=== PATIENT | male | born 1960 | race Caucasian/White ===

== ENCOUNTER 2021-08-24 20:09 | Inpatient (IN) | payer MEDICARE ==
[~2021-08-24] VITALS: Ht 167.6 cm; Wt 74.8 kg
[~2021-08-24 20:09] MED LIST: DOXY100C2 PO
[2021-08-24] MEDS ORDERED: BLOOD SUGAR DIAGNOSTIC 1 EACH STRIP IN ONE (21:30)
[2021-08-24] MEDS ORDERED: MAG HYDROX/AL HYDROX/SIMETH 30 ML UDC PO PRN (21:30)
[2021-08-24] MEDS ORDERED: ACETAMINOPHEN 325 MG TABLET PO PRN (21:30)
[2021-08-24] MEDS ORDERED: TEMAZEPAM 7.5 MG CAPSULE PO PRN (21:30)
[2021-08-24] MEDS ORDERED: MAGNESIUM HYDROXIDE 30 ML UDC PO PRN (21:30)
[2021-08-24] MEDS: NICOTINE PATCH (21MG) 21 MG PATCH.TD24 TD SCH (23:22)
[2021-08-24] MEDS ORDERED: BUSP10TA35 PO (23:39)
[2021-08-24] MEDS ORDERED: HALO10TA13 PO (23:43)
[2021-08-24] MEDS ORDERED: HALO100A4 IM (23:44)
[2021-08-24] MEDS ORDERED: HYDR12.55 PO (23:45)
[2021-08-24] MEDS ORDERED: HYDR50CA PO (23:47)
[2021-08-24] MEDS ORDERED: OLAN10TA3 PO (23:48)
[2021-08-24] MEDS ORDERED: SOFO1TAB PO (23:49)
[2021-08-24] MEDS ORDERED: TAMS-12 PO (23:49)
[2021-08-24] MEDS ORDERED: TRAZ-257 PO (23:50)
[2021-08-24] MEDS ORDERED: LORA-259 PO (23:51)
--- NOTE | 2021-08-25 01:30 | NUR ---
GPS RN ADMITTING NOTES: PATIENT ARRIVED THIS UNIT ON A STRETCHER WITH 2 EMT STAFF. PER REPORT, PATIENT ATTEMPTED TO LAY IN THE MIDDLE OF THE STREET TWICE TO END HIS LIFE, BUT PATIENT DENIED WANTING TO END HIS LIFE. PER PATIENT "I WAS JUST MESSING AROUND WITH MYSELF", "I WAS JUST TRYING TO LAY DOWN TO WATCH THE CARS GO BY, I DON'T WANT TO ". PER REPORT, PATIENT ALSO REPORTED A/V HALLUCINATIONS AT TIMES BUT NOT RIGHT NOW. UPON FACE TO FACE EVALUATION, PATIENT IS A/O X3, DISORGANIZED, ANXIOUS, POOR INSIGHT, POOR JUDGEMENT, ADMITS TO A/V HALLUCINATIONS SOMETIMES BUT NONE AT THIS TIME, ABLE TO FOLLOW COMMAND. SKIN ASSESSMENT DONE, PICTURES TAKEN AND PLACED IN PATIENT CHART. MRSA SWAB TAKEN, BS 99MG/DL. PATIENT IS UNDER THE PSYCHIATRIC CARE OF DR FRANK AND MEDICAL CARE OF [place]. NO S/S OF DISTRESS. RESPIRATION EVEN AND UNLABORED WITH EQUAL RISE AND FALL OF THE CHEST, ON ROOM AIR. PATIENT OFFERED FLUID AND SNACKS TOLERATED. PATIENT HAS NO NEEDS AT THIS TIME. PATIENT EDUCATED ON THE USE OF THE CALL BARNES. BED IN LOWEST POSITION AND LOCKED, SIDE RAILS UP X 2 FOR SAFETY. BED ALARM ON. WILL CONTINUE TO MONITOR Q15 MINS FOR MOOD, SAFETY AND BEHAVIOR.
[2021-08-25 04:28] VITALS: BP 129/75
[2021-08-25] MEDS: LORAZEPAM 1 MG TABLET PO PRN (06:11)
--- NOTE | 2021-08-25 06:13 | NUR ---
GPS RN NOTES: ATIVAN 1MG GIVEN PO PRN FOR ANXIETY AT 0611.
[2021-08-25 06:24] LABS: BASOPHILS # (AUTO) 0.1 K/uL (0.0-0.2); HEMATOCRIT 42 % (39-51); LYMPHOCYTES # (AUTO) 1.4 K/uL (0.8-4.8); LYMPHOCYTES % (AUTO) 24.6 % (20.0-44.0); MEAN CORPUSCULAR HGB CONC 34 g/dl (31.0-36.0); MEAN CORPUSCULAR VOLUME 97 fL (80-96); MONOCYTES # (AUTO) 1.1 K/uL (0.1-1.30); MONOCYTES % (AUTO) 18.7 % (2.0-12.0); NEUTROPHILS # (AUTO) 2.8 K/uL (1.8-8.9); NEUTROPHILS % (AUTO) 50.7 % (43.0-81.0); PLATELET COUNT (AUTO) 200 K/uL (150-450); RED BLOOD CELL COUNT(AUTO) 4.28 MIL/uL (4.5-6.0); WHITE BLOOD COUNT (AUTO) 5.6 K/uL (4.3-11.0)
[2021-08-25 06:40] LABS: CALCIUM, SERUM 8.2 mg/dL (8.5-10.1); CREATININE 0.8 mg/dL (0.6-1.3); POTASSIUM 3.8 mmol/L (3.5-5.1)
[2021-08-25 08:00] VITALS: BP 139/84
[2021-08-25] MEDS ORDERED: hydrOXYzine PAMOATE 50 MG CAPSULE PO SCH (09:00)
[2021-08-25] MEDS: HYDROCHLOROTHIAZIDE 25 MG TABLET PO SCH (09:03)
[2021-08-25] MEDS: NICOTINE PATCH (21MG) 21 MG PATCH.TD24 TD SCH (09:03)
[2021-08-25] MEDS: DOXYCYCLINE HYCLATE (100 MG) 100 MG TABLET PO SCH ×2 (09:37→16:51)
[2021-08-25 10:29] LABS: EOSINOPHILS % (MANUAL) 3 % (0-4); LYMPHOCYTES % (MANUAL) 23 % (16-48); MONOCYTES % (MANUAL) 14 % (0-11.0); NEUTROPHILS % (MANUAL) 60 (42-76)
[2021-08-25 16:00] VITALS: BP 142/84
[2021-08-25 20:02] VITALS: BP 152/89
[2021-08-25 20:11] VITALS: BP 152/89
[2021-08-25] MEDS: busPIRone 5 MG TABLET PO SCH (21:30)
--- NOTE | 2021-08-25 21:30 | NUR ---
RN NOTE: PATIENT SEEN BY DR. FRANK WITH NEW ORDERS, NOTED AND CARRIED OUT.
[2021-08-25] MEDS: HALOPERIDOL 5 MG TABLET PO SCH (22:01)
[2021-08-25] MEDS: TAMSULOSIN 0.4 MG CAP.SR.24H PO SCH (22:02)
[2021-08-25] MEDS: TRAZODONE 50 MG TABLET PO SCH (22:33)
[2021-08-25] MEDS: OLANZAPINE ZYDIS 5 MG TAB.RAPDIS PO SCH (22:44)
--- NOTE | 2021-08-25 23:50 | NUR ---
RN NOTE: HELD BUSPAR DR. FRANK SAW THE PATIENT TONIGHT AND ORDERED BUSPAR, VERIFIED THE ORDER BY PHARMACY NOW. DR. FRANK WAS ON THE UNIT AND INFORMED HIM THAT OTHER NEW PSYCH MEDS WERE ADMINISTERED TO THE PATIENT, PATIENT IS ASLEEP AT THIS TIME. DR. FARNK ADVISED TO HOLD BUSPAR TONIGHT & NOT TO WAKE UP THE PATIENT. HELD BUSPAR 10 MG PER MD ORDER. FIRST DOSE OF BUSPAR WILL BE GIVEN IN AM TOMORROW. WILL CONTINUE TO MONITOR THE PATIENT FOR ANY CHANGE OF CONDITION.
[2021-08-26 08:00] VITALS: BP 148/80
[2021-08-26] MEDS: HALOPERIDOL 5 MG TABLET PO SCH ×2 (08:37→21:28)
[2021-08-26] MEDS: NICOTINE PATCH (21MG) 21 MG PATCH.TD24 TD SCH (08:37)
[2021-08-26] MEDS: HYDROCHLOROTHIAZIDE 25 MG TABLET PO SCH (08:37)
[2021-08-26] MEDS: busPIRone 5 MG TABLET PO SCH ×2 (08:37→21:25)
[2021-08-26] MEDS: DOXYCYCLINE HYCLATE (100 MG) 100 MG TABLET PO SCH ×2 (08:38→17:55)
[2021-08-26] MEDS: LORAZEPAM 1 MG TABLET PO PRN (14:36)
[2021-08-26 16:04] VITALS: BP 141/77
[2021-08-26 19:53] VITALS: BP 135/86
[2021-08-26] MEDS: TAMSULOSIN 0.4 MG CAP.SR.24H PO SCH (22:05)
[2021-08-26] MEDS: TRAZODONE 50 MG TABLET PO SCH (22:06)
[2021-08-26] MEDS: OLANZAPINE ZYDIS 5 MG TAB.RAPDIS PO SCH (22:06)
--- NOTE | 2021-08-27 07:01 | NUR ---
GPS RN CLOSING NOTES: PATIENT IS CURRENTLY SLEEPING. PATIENT SLEPT 7 HR THIS SHIFT. NO S/S OF DISTRESS. RESPIRATION EVEN AND UNLABORED WITH EQUAL RISE AND FALL OF THE CHEST, ON ROOM AIR. ALL PATIENT CARE NEEDS HAVE BEEN MET ANTICIPATED. WILL CONTINUE TO MONITOR AND ENDORSE TO AM SHIFT.
[2021-08-27 08:00] VITALS: BP 136/72
[2021-08-27] MEDS: HYDROCHLOROTHIAZIDE 25 MG TABLET PO SCH (08:45)
[2021-08-27] MEDS: HALOPERIDOL 5 MG TABLET PO SCH ×2 (08:46→21:31)
[2021-08-27] MEDS: busPIRone 5 MG TABLET PO SCH ×2 (08:46→21:05)
[2021-08-27] MEDS: NICOTINE PATCH (21MG) 21 MG PATCH.TD24 TD SCH (08:46)
[2021-08-27] MEDS: DOXYCYCLINE HYCLATE (100 MG) 100 MG TABLET PO SCH ×2 (08:47→16:52)
--- NOTE | 2021-08-27 09:51 | NUR ---
RENATE Initial Discharge Plan: Pt resides at [facility] [address] [address]; [phone]. RENATE spoke with admission Sydnie ([phone]) who stated that they cannot accept pt back and stated to coordinate with pt's telehealth case manager Estephania ([phone]). RENATE contacted Estephania and left a detailed voicemail. RENATE will work with the MD and treatment team to coordinate appropriate discharge.
--- NOTE | 2021-08-27 10:07 | NUR ---
Conservator: RENATE contacted pt's conservator Yesica ([phone]) and the public guardian office in . However, Yesica is not available today but Javan who is covering will send Detain and Treat.
--- NOTE | 2021-08-27 10:25 | NUR ---
Detain and Treat: RENATE contacted pt's conservator Yesica ([phone]) and the public guardian office in . Javan who is covering for Yesica sent pt's detain and treat. RENATE placed in chart and notified charge nurse.
--- NOTE | 2021-08-27 13:56 | NUR ---
Drug Enforcement Agent: RENATE received a call from manager of case management Estephania ([phone]) who stated that pt's Board and Care evicted pt on 08/24/2021 and stated his facility is not an appropriate fit. Estephania stated she is working on finding him a placement. RENATE and manager of case management will work together to help find pt a place.
--- NOTE | 2021-08-27 13:57 | NUR ---
SNF Referral: RENATE sent clinicals to Taty haynes from [facility] ([phone]) for placement option.
[2021-08-27 16:17] VITALS: BP 151/86
[2021-08-27 19:53] VITALS: BP 143/88
[2021-08-27 20:03] VITALS: BP 143/88
[2021-08-27] MEDS: TAMSULOSIN 0.4 MG CAP.SR.24H PO SCH (21:33)
[2021-08-27] MEDS: OLANZAPINE ZYDIS 5 MG TAB.RAPDIS PO SCH (22:04)
[2021-08-27] MEDS: TRAZODONE 50 MG TABLET PO SCH (22:05)
--- NOTE | 2021-08-27 22:10 | NUR ---
GPS RN NOTES: PATIENT IS CONSERVED AND NEEDS DETAIN AND TREAT THOUGH CURRENTLY COMPLIANT WITH PO MEDS. DR FRANK HAS BEEN NOTIFIED.
[2021-08-28 08:00] VITALS: BP 153/74
[2021-08-28] MEDS: HYDROCHLOROTHIAZIDE 25 MG TABLET PO SCH (08:55)
[2021-08-28] MEDS: busPIRone 5 MG TABLET PO SCH ×2 (08:56→21:09)
[2021-08-28] MEDS: NICOTINE PATCH (21MG) 21 MG PATCH.TD24 TD SCH (08:56)
[2021-08-28] MEDS: HALOPERIDOL 5 MG TABLET PO SCH ×2 (08:56→21:10)
[2021-08-28] MEDS: DOXYCYCLINE HYCLATE (100 MG) 100 MG TABLET PO SCH ×2 (08:56→17:13)
--- NOTE | 2021-08-28 10:37 | NUR ---
SNF Contact: SW spoke with Taty haynes from [facility] ([phone]) who stated they cannot accept pt due to medical issues.
--- NOTE | 2021-08-28 10:38 | NUR ---
SNF Contact: RENATE sent clinicals to Alisha from [facility]. SW sent H & P notes, progress notes, and medication list. Per Michael, they accepted pt.
--- NOTE | 2021-08-28 10:43 | NUR ---
Hogshead Packer: RENATE contacted worker Estephania ([phone]) and stated this caption writer found pt a placement called [facility]. She was agreeable and stated she will also notify pt's conservator.
--- NOTE | 2021-08-28 10:47 | NUR ---
Conservator: SW contacted pt's conservator Yesica ([phone]) and left a detailed voicemail of pt's discharge plan and requested a call back.
[2021-08-28 16:20] VITALS: BP 158/91
[2021-08-28 20:06] VITALS: BP_SYST 127; BP_SYST 165; BP_DIAS 87; BP_DIAS 94
[2021-08-28] MEDS: TRAZODONE 50 MG TABLET PO SCH (21:08)
[2021-08-28] MEDS: OLANZAPINE ZYDIS 5 MG TAB.RAPDIS PO SCH (21:09)
[2021-08-28] MEDS: TAMSULOSIN 0.4 MG CAP.SR.24H PO SCH (21:10)
[2021-08-29 08:00] VITALS: BP 157/87
[2021-08-29] MEDS: OLANZAPINE ZYDIS 5 MG TAB.RAPDIS PO SCH ×2 (08:29→22:00)
[2021-08-29] MEDS: DOXYCYCLINE HYCLATE (100 MG) 100 MG TABLET PO SCH ×2 (08:30→16:26)
[2021-08-29] MEDS: NICOTINE PATCH (21MG) 21 MG PATCH.TD24 TD SCH (08:34)
[2021-08-29] MEDS: HALOPERIDOL 5 MG TABLET PO SCH ×2 (08:35→21:35)
[2021-08-29] MEDS: HYDROCHLOROTHIAZIDE 25 MG TABLET PO SCH (08:36)
[2021-08-29] MEDS: busPIRone 5 MG TABLET PO SCH ×2 (08:36→21:09)
--- NOTE | 2021-08-29 15:43 | NUR ---
Conservator: RENATE [facility] Public Conservator [facility] , who stated to speak to Estephania ([phone]) to coordinate patient's discharge.
--- NOTE | 2021-08-29 15:44 | NUR ---
RENATE Coordination of Care: RENATE spoke with Rosario [facility] Public Conservator [facility] , who stated to speak to Estephania ([phone]) to coordinate patient's discharge. RENATE spoke with Estephania who stated pt will be going to [facility] a voluntary crisis stabilization unit [facility] located at [address] [place] [address]. She reported accepting psychiatrist Dr. Palacios and Internet Sales Consultant Dr. Sanders. She reported that Lydia the Drop Count Associate will contact this SW to confirm.
[2021-08-29 16:00] VITALS: BP 144/84
[2021-08-29 20:00] VITALS: BP 138/78
--- NOTE | 2021-08-29 21:15 | NUR ---
RN NOTE OFFERED SNACK TO THE PATIENT AND PATIENT TOLERATED WELL.
[2021-08-29] MEDS: TAMSULOSIN 0.4 MG CAP.SR.24H PO SCH (21:37)
[2021-08-29] MEDS: TRAZODONE 50 MG TABLET PO SCH (22:00)
--- NOTE | 2021-08-30 07:06 | NUR ---
RN OPENING NOTES RECEIVED PATIENT AWAKE IN BED AT THIS TIME, AO X 2, CONFUSED AT TIMES, GUARDED, RESTRICTED, DISORGANIZED, DENIES SI/HI AT THIS TIME, NO ACUTE DISTRESS NOTED. NO C/O PAIN VERBALIZED, VSS. AMBULATORY WITH WALKER. SAFETY PRECAUTIONS OBSERVED AND MAINTAINED AT ALL TIMES. Q15MIN MONITORING FOR SAFETY AND BEHAVIOR PER PROTOCOL.
[2021-08-30 08:00] VITALS: BP 150/80
[2021-08-30 08:25] VITALS: BP 150/80
[2021-08-30] MEDS: HALOPERIDOL 5 MG TABLET PO SCH ×2 (09:19→21:43)
[2021-08-30] MEDS: OLANZAPINE ZYDIS 5 MG TAB.RAPDIS PO SCH ×2 (09:19→22:47)
[2021-08-30] MEDS: busPIRone 5 MG TABLET PO SCH ×2 (09:19→21:23)
[2021-08-30] MEDS: DOXYCYCLINE HYCLATE (100 MG) 100 MG TABLET PO SCH ×2 (09:19→16:28)
[2021-08-30] MEDS: NICOTINE PATCH (21MG) 21 MG PATCH.TD24 TD SCH (09:20)
[2021-08-30] MEDS: HYDROCHLOROTHIAZIDE 25 MG TABLET PO SCH (09:20)
--- NOTE | 2021-08-30 10:51 | NUR ---
MARIIA FROM PHARMACY REQUESTED [facility] MEDICATION. CALLED KEELY, INSULATING MACHINE OPERATOR @ [facility] AND CARE TO PROVIDE MEDICATION. PER KEELY, MEDICATION CAN NOT BE PROVIDED TO THE HOSPITAL AND THAT PATIENTS' DOCTOR (DR SULLIVAN @ [facility]-[phone]) IS AWARE OF LAPSES IN PATIENT MEDICATION. MARIIA,, PHARMACIST AND DR OSUNA MADE AWARE. WILL CONTINUE WITH PLAN OF CARE
[2021-08-30 15:52] VITALS: BP 135/82
[2021-08-30 16:00] VITALS: BP 135/82
[2021-08-30] MEDS ORDERED: INSULIN REGULAR, HUMAN 100 UNIT/ML 3 ML VIAL SQ PRN (18:00)
[2021-08-30] MEDS ORDERED: BLOOD SUGAR DIAGNOSTIC 1 EACH STRIP IN SCH (18:00)
[2021-08-30] MEDS ORDERED: DEXTROSE 50%-WATER 50 ML DISP.SYRIN IV PRN (18:00)
--- NOTE | 2021-08-30 18:10 | NUR ---
RN CLOSING NOTES PATIENT AWAKE , IN BED AT THIS TIME. PATIENT REMAINED STABLE THROUGHOUT SHIFT. PT DENIES SI/HI. ALL CARE, NEEDS, MEDICATIONS ADMINISTERED ANTICIPATED PER PROTOCOL. PT KEPT CLEAN AND DRY. REMAINED COMPLIANT THROUGHOUT SHIFT. SAFETY PRECAUTIONS IN PLACE AND MAINTAINED AT ALL TIMES. BED IN LOWEST LOCKED POSITION, HOB ELEVATED, SIDE RAILS UP X2, CALL LIGHT AND TABLE WITHIN REACH, [id number] MONITORING MAINTAINED. WILL ENDORSE TO SUPERVISOR NUTRITIONAL YEAST NURSE FOR JAUN
[2021-08-30 20:00] VITALS: BP 154/81
[2021-08-30] MEDS: TAMSULOSIN 0.4 MG CAP.SR.24H PO SCH (22:46)
[2021-08-30] MEDS: TRAZODONE 50 MG TABLET PO SCH (22:47)
[2021-08-31 08:00] VITALS: BP 152/90
[2021-08-31] MEDS: OLANZAPINE ZYDIS 5 MG TAB.RAPDIS PO SCH ×2 (08:31→21:54)
[2021-08-31] MEDS: HALOPERIDOL 5 MG TABLET PO SCH ×2 (08:31→21:34)
[2021-08-31] MEDS: DOXYCYCLINE HYCLATE (100 MG) 100 MG TABLET PO SCH ×2 (08:31→17:18)
[2021-08-31] MEDS: NICOTINE PATCH (21MG) 21 MG PATCH.TD24 TD SCH (08:31)
[2021-08-31] MEDS: busPIRone 5 MG TABLET PO SCH ×2 (08:31→21:05)
[2021-08-31] MEDS: HYDROCHLOROTHIAZIDE 25 MG TABLET PO SCH (08:32)
[2021-08-31 16:00] VITALS: BP 140/60
[2021-08-31 20:47] VITALS: BP 140/80
[2021-08-31] MEDS: TAMSULOSIN 0.4 MG CAP.SR.24H PO SCH (21:54)
[2021-08-31] MEDS: TRAZODONE 50 MG TABLET PO SCH (21:55)
[2021-09-01 08:00] VITALS: BP 126/57
[2021-09-01] MEDS: HALOPERIDOL 5 MG TABLET PO SCH ×2 (08:12→21:37)
[2021-09-01] MEDS: NICOTINE PATCH (21MG) 21 MG PATCH.TD24 TD SCH (08:12)
[2021-09-01] MEDS: DOXYCYCLINE HYCLATE (100 MG) 100 MG TABLET PO SCH ×2 (08:13→17:17)
[2021-09-01] MEDS: busPIRone 5 MG TABLET PO SCH ×2 (08:13→21:18)
[2021-09-01] MEDS: OLANZAPINE ZYDIS 5 MG TAB.RAPDIS PO SCH ×2 (08:13→22:19)
[2021-09-01] MEDS: HYDROCHLOROTHIAZIDE 25 MG TABLET PO SCH (08:13)
[2021-09-01 16:06] VITALS: BP 153/84
[2021-09-01 20:00] VITALS: BP 138/80
[2021-09-01] MEDS: TAMSULOSIN 0.4 MG CAP.SR.24H PO SCH (22:18)
[2021-09-01] MEDS: TRAZODONE 50 MG TABLET PO SCH (22:19)
[2021-09-02 08:00] VITALS: BP 152/89
[2021-09-02] MEDS: HALOPERIDOL 5 MG TABLET PO SCH ×2 (08:49→21:31)
[2021-09-02] MEDS: HYDROCHLOROTHIAZIDE 25 MG TABLET PO SCH (08:50)
[2021-09-02] MEDS: NICOTINE PATCH (21MG) 21 MG PATCH.TD24 TD SCH (08:50)
[2021-09-02] MEDS: busPIRone 5 MG TABLET PO SCH ×2 (08:50→21:16)
[2021-09-02] MEDS: DOXYCYCLINE HYCLATE (100 MG) 100 MG TABLET PO SCH ×2 (08:50→16:06)
[2021-09-02] MEDS: OLANZAPINE ZYDIS 5 MG TAB.RAPDIS PO SCH ×2 (08:50→22:04)
[2021-09-02 16:00] VITALS: BP 143/80
[2021-09-02 20:09] VITALS: BP 128/74
[2021-09-02 20:25] VITALS: BP 128/74
[2021-09-02] MEDS: TAMSULOSIN 0.4 MG CAP.SR.24H PO SCH (21:31)
[2021-09-02] MEDS: TRAZODONE 50 MG TABLET PO SCH (22:04)
[2021-09-03 08:00] VITALS: BP 138/73
[2021-09-03] MEDS: busPIRone 5 MG TABLET PO SCH ×2 (08:31→21:47)
[2021-09-03] MEDS: DOXYCYCLINE HYCLATE (100 MG) 100 MG TABLET PO SCH ×2 (08:31→17:22)
[2021-09-03] MEDS: HYDROCHLOROTHIAZIDE 25 MG TABLET PO SCH (08:32)
[2021-09-03] MEDS: HALOPERIDOL 5 MG TABLET PO SCH ×2 (08:32→21:47)
[2021-09-03] MEDS: NICOTINE PATCH (21MG) 21 MG PATCH.TD24 TD SCH (08:32)
[2021-09-03] MEDS: OLANZAPINE ZYDIS 5 MG TAB.RAPDIS PO SCH ×2 (09:06→21:47)
--- NOTE | 2021-09-03 12:20 | NUR ---
Conservator: RENATE contacted conservator Rosario ([phone]) and notified of pt's discharge and Rosario has been aware and wants pt to go to the voluntary unit.
[2021-09-03 16:00] VITALS: BP 149/78
[2021-09-03 20:58] VITALS: BP 147/83
[2021-09-03] MEDS: LORAZEPAM 1 MG TABLET PO PRN (21:47)
[2021-09-03] MEDS: TAMSULOSIN 0.4 MG CAP.SR.24H PO SCH (21:47)
[2021-09-03] MEDS: TRAZODONE 50 MG TABLET PO SCH (21:47)
--- NOTE | 2021-09-04 07:59 | NUR ---
SW Discharge Note: Patient will be discharged to [facility] located at [address] [place] [address], [facility]; . Estephania from [facility] ([phone]) will peanut picker pt at 11AM. Patients conservator Rosario ([phone]) is aware and agreeable with this discharge. Patient appears to be alert and oriented x2. Patient is happy to be discharged. Patient denies suicidal or homicidal ideation. Patient denies visual/auditory hallucinations. Patient will follow up with (Psychiatrist) Dr. Palacios and Healthcare Corporate Account Director (Dr. Sanders) at the facility located at [address] [place] [address], [facility]([phone]). Patient presents with euthymic mood and congruent affect.
[2021-09-04 08:00] VITALS: BP 137/81
[2021-09-04] MEDS: NICOTINE PATCH (21MG) 21 MG PATCH.TD24 TD SCH (08:58)
[2021-09-04 08:59] VITALS: BP 137/81
[2021-09-04] MEDS: OLANZAPINE ZYDIS 5 MG TAB.RAPDIS PO SCH (08:59)
[2021-09-04] MEDS: busPIRone 5 MG TABLET PO SCH (08:59)
[2021-09-04] MEDS: HYDROCHLOROTHIAZIDE 25 MG TABLET PO SCH (08:59)
[2021-09-04] MEDS: DOXYCYCLINE HYCLATE (100 MG) 100 MG TABLET PO SCH (08:59)
[2021-09-04] MEDS: HALOPERIDOL 5 MG TABLET PO SCH (08:59)
--- NOTE | 2021-09-04 13:38 | NUR ---
GPS DIRECTOR FINANCIAL PLANNING NOTE: Patient will be discharged to [facility] located at [address] [place] [address], [id number]; . Estephania from [facility] ([phone]) will excelsior picker pt at 1300.Patients conservator Rosario ([phone]) is aware and agreeable with this discharge.Patient in stable condition no s/s distress noted, vss, patient ambulatory with walker, a/o x2 , compliant with medications and tx. Exit care done, printed and given to patient all belongings and valuables returned to patient. Body assessment done picture placed in the chart. medications rx explain and given to pt.
== END 2021-09-04 13:00 | disposition home or self-care (01) | DRG 885 ==
LOC: GPS 20:09
PROVIDERS: ADMIT Psychiatry & Neurology Psychiatry; ATTEND Nurse Practitioner Acute Care
DX: F25.9 Schizoaffective disorder, unspecified (principal); E78.5 Hyperlipidemia, unspecified; I10 Essential (primary) hypertension; N40.0 Benign prostatic hyperplasia without lower urinary tract symptoms; F32.A Depression, unspecified; F29 Unspecified psychosis not due to a substance or known physiological condition; Z73.6 Limitation of activities due to disability
CPT/HCPCS: 36415; 80048-TC; 80061-TC; 82962-TC; 85025-TC; 87081-TC; 97116-TC; 97530-TC